=== PATIENT | male | born 1935 | race Caucasian/White ===

== ENCOUNTER 2017-11-21 19:20 | Inpatient (IN) | payer BC, OTHER ==
[~2017-11-21] VITALS: Ht 177.8 cm; Wt 78.3 kg
[~2017-11-21 19:20] MED LIST: ASCO500C OR; CPRUNK PO; L-LYSINE PO; MULT-506 PO; POTASSIUM PO; PRCUNK PO; PYRUNK PO; SAW PALMETTA PO; VITAMIN D PO
[2017-11-21] MEDS ORDERED: SODIUM CHLORIDE 0.9% 1000ML 1,000 ML IV STA (19:51)
[2017-11-21] MEDS ORDERED: MoRPHine SULFATE 10 MG/ML CARP/VIAL IV STA (19:51)
[2017-11-21] MEDS ORDERED: ONDANSETRON INJ 2 MG/ML 2 ML VIAL IV STA (19:51)
[2017-11-21 20:16] LABS: BASO % 0.1 %; BASO ABS # 0.01 K/uL (0-0.2); HEMATOCRIT 38.9 % (42-52); HEMOGLOBIN 13.4 g/dL (14.0-18.0); IG# 0.02 K/uL (0.00-0.02); LYMPH ABS # 0.62 K/uL (1.2-3.4); MEAN CELL VOLUME 90.5 fL (80-100); MEAN CORPUSCULAR HEMOGLOBIN 31.2 pg (25-34); MEAN CORPUSCULAR HGB CONC 34.4 g/dl (32-36); MONO ABS # 0.49 K/uL (0.11-0.59); NEUT % 90.7 %; PLATELET COUNT 205 K/uL (130-400); RED CELL DISTRIBUTION WIDTH CV 12.6 % (11.5-14.5); RED CELL DISTRIBUTION WIDTH SD 41.2 fL (36.4-46.3); WHITE BLOOD COUNT 12.34 K/uL (4.8-10.8)
[2017-11-21 20:36] LABS: CREATININE 1.4 mg/dl (0.60-1.40); POTASSIUM 3.7 mmol/L (3.5-5.1); TOTAL PROTEIN 7.9 gm/dl (6.4-8.2)
[2017-11-21] MEDS ORDERED: MoRPHine SULFATE 4 MG/ML 1 ML CARP\\VIAL IV STA (20:39)
[2017-11-21] MEDS ORDERED: MoRPHine SULFATE 4 MG/ML 1 ML CARP\\VIAL IV PRN ×3 (20:45→23:15)
--- NOTE | 2017-11-21 21:29 | DIAGNOSTIC IMAGING REPORT ---
ABD/PELVIS WITHOUT FOR STONE HISTORY: 82 years-old Male EVAL RLQ ABD PAIN acute right lower quadrant abdominal pain with nausea COMPARISON: CT chest 10/18/2009 TECHNIQUE: Multiple axial CT images of the abdomen and pelvis were obtained without use of IV contrast. A dose lowering technique was used consistent with the principals of AVTAR. FINDINGS: Mild left hemidiaphragm elevation with linear subsegmental left basilar opacities suggesting combination of atelectasis and scarring. Mild dependent subsegmental atelectasis of the right lung base also noted. There is no pneumatosis or pneumoperitoneum identified. Imaged inferior cardiac chambers are mildly enlarged. 1.7 x 1.0 cm indeterminate enlarged right-sided epicardial lymph node is noted. Coronary arterial calcifications are seen. Liver, spleen and right adrenal gland are unremarkable. There is mild thickening of the left adrenal gland suggesting hyperplasia. Severe generalized pancreatic atrophy. Mild gallbladder distention without cholelithiasis. Cortical scarring and parenchymal thinning about the left kidney. Renal sinus cysts are also noted on the left. Right greater the left bilateral nonobstructing nephrolithiasis with 7 mm calculus of the superior pole right kidney. There is moderate right-sided hydroureteronephrosis secondary to an obstructing 9 x 7 x 6 mm calculus of the proximal right ureter is present approximately 1.2 cm distal to the ureteropelvic junction. Moderate perinephric and periureteral reactive edema. Prostamegaly with urinary bladder distention. There is also mild urinary bladder wall thickening with trabeculation. Small fat filled left inguinal hernia. Moderate calcification of the aorta without aneurysm. Retroaortic left renal vein. No bulky adenopathy. Small sliding-type hiatal hernia. 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 Colonic diverticulosis without diverticulitis. Normal appendix. Prior ventral abdominal wall herniorrhaphy. Small fat filled periumbilical hernia, diastases 1.4 cm. Bones appear intact. Multilevel degenerative changes about the spine. IMPRESSION: 1. Moderate right-sided hydroureteronephrosis secondary to a 9 mm obstructing calculus of the proximal right ureter. Additional right greater than left bilateral nonobstructing nephrolithiasis. 2. Colonic diverticulosis without diverticulitis. 3. Small sliding-type hilar hernia. 4. Prostamegaly with urinary bladder distention. Correlate clinically to exclude urinary bladder outlet obstruction. 5. Additional findings as above. The above report was generated using voice recognition software. It may contain grammatical, syntax or spelling errors. Electronically signed by: Sheldon Romero M.D. 11/21/2017 9:28 PM Dictated Date/Time: 11/21/2017 9:17 PM
--- NOTE | 2017-11-21 21:51 | EMERGENCY ROOM VISIT NOTE ---
ED Visit Note First contact with patient: 19:40 Patient was seen by our PA/INSPECTOR WIRE [employer]OPE. I was involved in the patient's care and did evaluate the patient myself. I was involved in the care throughout the ER stay. The patient has a large proximal ureteral stone. This will likely need urologic intervention. The patient has normal kidney function, no signs of urinary infection. He has required multiple doses of pain medication for symptom control. Hospitalization is warranted.
--- NOTE | 2017-11-21 21:55 | EMERGENCY ROOM VISIT NOTE ---
History First contact with patient: 19:40 Chief Complaint: ABDOMINAL PAIN Stated Complaint: SIDE PAIN Nursing Triage Summary: RLQ pain 8/10 with nausea no vomiting since this a.m. around 5. Patient appears very uncomfortably, unable to lie still on the litter. History of Present Illness Patient is an 82-year-old male who presents the emergency department accompanied by his for evaluation of right lower quadrant abdominal pain that started fairly acutely early this morning. He has had symptoms for between 10 and 12 hours. He notes a sharp right lower quadrant pain, that he presently rates an 8/10. It is located in the right lower quadrant, does not wrap around to the back or the flank. He has a very remote history of kidney stones but states that this does not feel similar. He states that he tried to move his bowels, but that was difficult, he felt nauseous and queasy and tried to make himself vomit but did not. He subjectively felt feverish but did not record his temperature with a thermometer. He did not take any medication for his symptoms. He had a late meal of soup about 8 hours ago. He denies any urinary symptoms. No diarrhea. He denies any sick contacts. No unusual food or water consumption. He has a history of laser surgery on the prostate, and inguinal hernia repair, but no other intra-abdominal procedures. Review of Systems Review of systems as per HPI. All other systems reviewed were negative. 10 systems reviewed. 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 See Problem List. Social History Smoking Status: Former Smoker Marital Status: Housing Status: lives with significant other Occupation Status: retired Current/Historical Medications Scheduled Ascorbic Acid (Vitamin C), 500 MG OR DAILY Ciprofloxacin (Cipro Unknown Dose), PO UD Multivitamin (Multivitamin), 1 TAB PO DAILY Oxycodone/Acetaminophen (Percocet Unknown Dose), PO UD Phenazopyridine (Pyridium Unknown Dose), PO UD [L-Lysine], 1 TAB PO DAILY [Potassium], 1 TAB PO DAILY [Saw [place]], 1 TAB PO BID [Vitamin D], 1 TAB PO DAILY Physical Exam Vital Signs Date Time Temp Pulse Resp B/P (MAP) Pulse Ox O2 Delivery O2 Flow Rate FiO2 11/21/17 21:25 77 16 170/88 94 Room Air 11/21/17 19:29 36.6 62 18 206/75 96 Room Air Physical Exam CONSTITUTIONAL: Patient is uncomfortable appearing 82-year-old male who is awake and alert and changing positions frequently in the exam room. EYES: Pupils equal, round, reactive to light and accommodation. EOMs intact without nystagmus. Sclera are anicteric. ENT: Tympanic membranes intact, with normal landmarks. External canals are clear. Oral and nasopharynx are clear. Mucous membranes are moist, no lesions , tongue and gums appear normal. CARDIOVASCULAR: Regular rate and rhythm, with normal S1 and S2, no murmur or gallop or rub is heard. No carotid bruits auscultated. No JVD. Peripheral pulses easily palpable. RESPIRATORY: Breath sounds equal and clear to auscultation without wheezes, rales, or rhonchi heard. Full and equal chest expansion without accessory muscle use or retractions. ABDOMEN: Bowel sounds are present. Abdomen is soft, nondistended, soft ventral hernia is palpable and nontender. Abdomen is nontender to percussion throughout. He has slight discomfort to deep palpation in the right mid abdomen. There is no guarding, rebound or rigidity. No CVA tenderness. INTEGUMENTARY: No lesions or rash, normal skin turgor. LYMPH: No lymphadenopathy. Medical Decision & Procedures ER Provider Diagnostic Interpretation: ABD/PELVIS WITHOUT FOR STONE HISTORY: 82 years-old Male EVAL RLQ ABD PAIN acute right lower quadrant abdominal pain with nausea COMPARISON: CT chest 10/18/2009 TECHNIQUE: Multiple axial CT images of the abdomen and pelvis were obtained without use of IV contrast. A dose lowering technique was used consistent with the principals of ALARA. FINDINGS: Mild left hemidiaphragm elevation with linear subsegmental left basilar opacities suggesting combination of atelectasis and scarring. Mild dependent subsegmental atelectasis of the right lung base also noted. There is no pneumatosis or pneumoperitoneum identified. Imaged inferior cardiac chambers are mildly enlarged. 1.7 x 1.0 cm indeterminate enlarged right-sided epicardial lymph node is noted. Coronary arterial calcifications are seen. Liver, spleen and right adrenal gland are unremarkable. There is mild thickening of the left adrenal gland suggesting hyperplasia. Severe generalized pancreatic atrophy. Mild gallbladder distention without cholelithiasis. Cortical scarring and parenchymal thinning about the left kidney. Renal sinus cysts are also noted on the left. Right greater the left bilateral nonobstructing nephrolithiasis with 7 mm calculus of the superior pole right kidney. There is moderate right-sided hydroureteronephrosis secondary to an obstructing 9 x 7 x 6 mm calculus of the proximal right ureter is present approximately 1.2 cm distal to the ureteropelvic junction. Moderate perinephric and periureteral reactive edema. Prostamegaly with urinary bladder distention. There is also mild urinary bladder wall thickening with trabeculation. Small fat filled left inguinal hernia. Moderate calcification of the aorta without aneurysm. Retroaortic left renal vein. No bulky adenopathy. Small sliding-type hiatal hernia. 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 Colonic diverticulosis without diverticulitis. Normal appendix. Prior ventral abdominal wall herniorrhaphy. Small fat filled periumbilical hernia, diastases 1.4 cm. Bones appear intact. Multilevel degenerative changes about the spine. IMPRESSION: 1. Moderate right-sided hydroureteronephrosis secondary to a 9 mm obstructing calculus of the proximal right ureter. Additional right greater than left bilateral nonobstructing nephrolithiasis. 2. Colonic diverticulosis without diverticulitis. 3. Small sliding-type hilar hernia. 4. Prostamegaly with urinary bladder distention. Correlate clinically to exclude urinary bladder outlet obstruction. 5. Additional findings as above. Laboratory Results 11/21/17 20:00 Red Blood Count 4.30, Mean Corpuscular Volume 90.5, Mean Corpuscular Hemoglobin 31.2, Mean Corpuscular Hemoglobin Concent 34.4, Mean Platelet Volume 10.0, Neutrophils (%) (Auto) 90.7, Lymphocytes (%) (Auto) 5.0, Monocytes (%) (Auto) 4.0, Eosinophils (%) (Auto) 0.0, Basophils (%) (Auto) 0.1, Neutrophils # (Auto) 11.20, Lymphocytes # (Auto) 0.62, Monocytes # (Auto) 0.49, Eosinophils # (Auto) 0.00, Basophils # (Auto) 0.01 11/21/17 20:00 Test 11/21/17 20:00 White Blood Count 12.34 K/uL (4.8-10.8) Red Blood Count 4.30 M/uL (4.7-6.1) Hemoglobin 13.4 g/dL (14.0-18.0) Hematocrit 38.9 % (42-52) Mean Corpuscular Volume 90.5 fL (80-100) Mean Corpuscular Hemoglobin 31.2 pg (25-34) Mean Corpuscular Hemoglobin Concent 34.4 g/dl (32-36) Platelet Count 205 K/uL (130-400) Mean Platelet Volume 10.0 fL (7.4-10.4) Neutrophils (%) (Auto) 90.7 % Lymphocytes (%) (Auto) 5.0 % Monocytes (%) (Auto) 4.0 % Eosinophils (%) (Auto) 0.0 % Basophils (%) (Auto) 0.1 % Neutrophils # (Auto) 11.20 K/uL (1.4-6.5) Lymphocytes # (Auto) 0.62 K/uL (1.2-3.4) Monocytes # (Auto) 0.49 K/uL (0.11-0.59) Eosinophils # (Auto) 0.00 K/uL (0-0.5) Basophils # (Auto) 0.01 K/uL (0-0.2) RDW Standard Deviation 41.2 fL (36.4-46.3) RDW Coefficient of Variation 12.6 % (11.5-14.5) Immature Granulocyte % (Auto) 0.2 % Immature Granulocyte # (Auto) 0.02 K/uL (0.00-0.02) Urine Color YELLOW Urine Appearance CLEAR (CLEAR) Urine pH 5.5 (4.5-7.5) Urine Specific [place] 1.019 (1.000-1.030) Urine Protein TRACE (NEG) Urine Glucose (UA) NEG (NEG) Urine Ketones NEG (NEG) Urine Occult Blood TRACE (NEG) Urine Nitrite NEG (NEG) Urine Bilirubin NEG (NEG) Urine Urobilinogen NEG (NEG) Urine Leukocyte Esterase NEG (NEG) Urine WBC (Auto) 1-5 /hpf (0-5) Urine RBC (Auto) 10-30 /hpf (0-4) Urine Hyaline Casts (Auto) 1-5 /lpf (0-5) Urine Epithelial Cells (Auto) 0-5 /lpf (0-5) Urine Bacteria (Auto) NEG (NEG) Anion Gap 7.0 mmol/L (3-11) Est Creatinine Clear Calc Drug Dose 38.9 ml/min Estimated GFR () 54.2 Estimated GFR (Non- 46.8 BUN/Creatinine Ratio 12.9 (10-20) Calcium Level 9.0 mg/dl (8.5-10.1) Total Bilirubin 0.4 mg/dl (0.2-1) Aspartate Amino Transf (AST/SGOT) 22 U/L (15-37) Alanine Aminotransferase (ALT/SGPT) 24 U/L (12-78) Alkaline Phosphatase 103 U/L (45-117) Total Protein 7.9 gm/dl (6.4-8.2) Albumin 4.0 gm/dl (3.4-5.0) Globulin 3.9 gm/dl (2.5-4.0) Albumin/Globulin Ratio 1.0 (0.9-2) Lipase 58 U/L (73-393) Medications Administered Medications (Trade) Dose Ordered Sig/Mau Route Start Time Stop Time Status Last Admin Dose Admin Morphine Sulfate (MoRPHine SULFATE INJ) 6 mg NOW STAT IV 11/21/17 19:51 11/21/17 19:53 DC 11/21/17 20:08 6 MG Ondansetron HCl (Zofran Inj) 4 mg NOW STAT IV 11/21/17 19:51 11/21/17 19:53 DC 11/21/17 20:07 4 MG Sodium Chloride 1,000 ml @ 999 mls/hr Q1H1M STAT IV 11/21/17 19:51 11/21/17 20:51 DC 11/21/17 19:51 999 MLS/HR Morphine Sulfate (MoRPHine SULFATE INJ) 4 mg NOW STAT IV 11/21/17 20:39 11/21/17 20:41 DC 11/21/17 21:00 4 MG Morphine Sulfate (MoRPHine SULFATE INJ) 4 mg Q1H PRN IV 11/21/17 20:45 12/05/17 20:44 11/21/17 22:00 4 MG ED Course The patient was seen and assessed as above. His old records were reviewed. IV lock was initiated and he was hydrated with normal saline solution. He was given a liter bolus over 1 hour. He was initially medicated with morphine 6 mg IV and Zofran 4 mg IV. He had moderate relief of his pain, but requested additional medication and was given an additional morphine 4 mg IV, Dr. Mohr hen morphine 4 mg IV every hour as needed for pain. CBC with differential, CMP , lipase and urinalysis were collected. Laboratory studies noted a mildly elevated white count at 12,400, H&H 13 and 39 , platelet count 205,000. Electrolytes are within normal limits. BUN and creatinine 18 and 1.4. LFTs and lipase are not elevated. Urinalysis notes trace occult blood and 10-30 RBCs, no other indicators for infection. Given the right lower quadrant/flank pain and hematuria, CT scan of the abdomen and pelvis without contrast was ordered. CT noted moderate right-sided hydroureteronephrosis secondary to an obstructing 9 mm calculus of the proximal right ureter. There is also bilateral, right greater than left nonobstructing nephrolithiasis. All laboratory and diagnostic imaging studies were reviewed with attending physician who also independently evaluated the patient. ED workup was reviewed with the patient and his at length. I did discuss the patient with Dr. James from urology who recommended medical admission with surgical consult. Patient was discussed with the [facility] for further care and management. Differential diagnoses entertained included UTI, pyelonephritis, renal colic, appendicitis, biliary colic, acute cholecystitis, cholelithiasis, bowel obstruction, perforation, mass or malignancy, among others. Medical Decision S Dr. Valencia ED Course. Medication Reconcilliation Current Medication List: was personally reviewed by [place] Blood Pressure Screening Patient's blood pressure: Elevated blood pressure Blood pressure disposition: Elevated BP felt to be situational (Dr. Mohr) Impression Primary Impression: Ureteral calculus, right Departure Information Dispostion Being Evaluated By Hospitalist Referrals Cooper Jin M.D. (PCP) Patient Instructions My [facility]
[2017-11-21] MEDS ORDERED: CHOL400T PO (22:24)
[2017-11-21] MEDS ORDERED: LYSI500C4 PO (22:24)
[2017-11-21] MEDS ORDERED: MISC1CAP60 PO (22:24)
--- NOTE | 2017-11-21 23:15 | History and Physical ---
History & Physical Date & Time of Service: November 21, 2017 at 22:36 Chief Complaint: Side Pain Primary Care Physician: Cooper Jin M.D. History of Present Illness Source: patient, family () Pt is an 82M with previous kidney stones and BPH s/p TURP procedure that p/w right sided abdominal pain starting acutely at 3am approx 20 hours prior. The pain was constant throughout the day, originally the patient thought he ate something but then starting thinking he might have a kidney stone. He has had kidney stones in the past. Aside from the right sided abdominal pain he is in good health. Pt denies fevers, denies back pain, denies flank pain, denies hematuria, denies vomiting, denies diarrhea. PMHx: previous kidney stones and BPH s/p resection. Meds: No Rx meds. 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 Cooper Jin. Past Medical/Surgical History Medical Problems: (1) Hypertrophy (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 (2) Personal History Of Urinary Calculi Surgical Problems: (1) History of inguinal hernia repair, bilateral (2) History of prostate surgery (3) Lens Replacement Nec Social History Smoking Status: Former Smoker Marital Status: Occupational Status: retired Allergies Coded Allergies: No Known Allergies (Verified , 09/29/09) Home Medications Scheduled Cholecalciferol (Vitamin D), 1 TAB PO DAILY Lysine (L-Lysine), 1 CAP PO DAILY Misc Natural Products (Saw Dexter), 1 CAP PO DAILY Review of Systems Constitutional: No fever, No chills, No weight loss Respiratory: No cough, No sputum, No wheezing, No shortness of breath Cardiovascular: No chest pain Abdomen: No pain, No nausea, No vomiting, No diarrhea Musculoskeletal: No joint pain Genitourinary - Male: No hematuria, No dysuria, No urinary frequency, No urinary urgency, No urinary hesitancy, No urinary retention, No urinary incontinence, No penile discharge Neurologic: No memory loss Physical Exam Vital Signs Date Time Temp Pulse Resp B/P (MAP) Pulse Ox O2 Delivery O2 Flow Rate FiO2 11/21/17 21:25 77 16 170/88 94 Room Air 11/21/17 19:29 36.6 62 18 206/75 96 Room Air General Appearance: WD/WN, no apparent distress Head: normocephalic, atraumatic Eyes: normal inspection, PERRL ENT: normal ENT inspection Neck: supple Respiratory/Chest: chest non-tender, lungs clear, normal breath sounds, no respiratory distress, no accessory muscle use Cardiovascular: regular rate, rhythm, no edema, no gallop, no JVD, no murmur, normal peripheral pulses Abdomen/GI: normal bowel sounds, soft, no organomegaly, no pulsatile mass, + pertinent finding (tender to deep palpation in the RLQ) Back: normal inspection, no CVA tenderness, no muscle spasm, normal range of motion Extremities/Musculoskelatal: normal inspection, no calf tenderness, no pedal edema 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, no motor/sensory deficits, alert, normal mood/affect, normal reflexes, oriented x 3 Skin: normal color, warm/dry, no rash Diagnostics Laboratory Results Results Past 24 Hours Test 11/21/17 20:00 Range/Units White Blood Count 12.34 4.8-10.8 K/uL Red Blood Count 4.30 4.7-6.1 M/uL Hemoglobin 13.4 14.0-18.0 g/dL Hematocrit 38.9 42-52 % Mean Corpuscular Volume 90.5 80-100 fL Mean Corpuscular Hemoglobin 31.2 25-34 pg Mean Corpuscular Hemoglobin Concent 34.4 32-36 g/dl Platelet Count 205 130-400 K/uL Mean Platelet Volume 10.0 7.4-10.4 fL Neutrophils (%) (Auto) 90.7 % Lymphocytes (%) (Auto) 5.0 % Monocytes (%) (Auto) 4.0 % Eosinophils (%) (Auto) 0.0 % Basophils (%) (Auto) 0.1 % Neutrophils # (Auto) 11.20 1.4-6.5 K/uL Lymphocytes # (Auto) 0.62 1.2-3.4 K/uL Monocytes # (Auto) 0.49 0.11-0.59 K/uL Eosinophils # (Auto) 0.00 0-0.5 K/uL Basophils # (Auto) 0.01 0-0.2 K/uL RDW Standard Deviation 41.2 36.4-46.3 fL RDW Coefficient of Variation 12.6 11.5-14.5 % Immature Granulocyte % (Auto) 0.2 % Immature Granulocyte # (Auto) 0.02 0.00-0.02 K/uL Urine Color YELLOW Urine Appearance CLEAR CLEAR Urine pH 5.5 4.5-7.5 Urine Specific [place] 1.019 1.000-1.030 Urine Protein TRACE NEG Urine Glucose (UA) NEG NEG Urine Ketones NEG NEG Urine Occult Blood TRACE NEG Urine Nitrite NEG NEG Urine Bilirubin NEG NEG Urine Urobilinogen NEG NEG Urine Leukocyte Esterase NEG NEG Urine WBC (Auto) 1-5 0-5 /hpf Urine RBC (Auto) 10-30 0-4 /hpf Urine Hyaline Casts (Auto) 1-5 0-5 /lpf Urine Epithelial Cells (Auto) 0-5 0-5 /lpf Urine Bacteria (Auto) NEG NEG Sodium Level 141 136-145 mmol/L Potassium Level 3.7 3.5-5.1 mmol/L Chloride Level 107 98-107 mmol/L Carbon Dioxide Level 26 21-32 mmol/L Anion Gap 7.0 3-11 mmol/L Blood Urea Nitrogen 18 7-18 mg/dl Creatinine 1.40 0.60-1.40 mg/dl Est Creatinine Clear Calc Drug Dose 38.9 ml/min Estimated GFR () 54.2 Estimated GFR (Non- 46.8 BUN/Creatinine Ratio 12.9 10-20 Random Glucose 152 70-99 mg/dl Calcium Level 9.0 8.5-10.1 mg/dl Total Bilirubin 0.4 0.2-1 mg/dl Aspartate Amino Transf (AST/SGOT) 22 15-37 U/L Alanine Aminotransferase (ALT/SGPT) 24 12-78 U/L Alkaline Phosphatase 103 45-117 U/L Total Protein 7.9 6.4-8.2 gm/dl Albumin 4.0 3.4-5.0 gm/dl Globulin 3.9 2.5-4.0 gm/dl Albumin/Globulin Ratio 1.0 0.9-2 Lipase 58 73-393 U/L Diagnostic Radiology ABD/PELVIS WITHOUT FOR STONE HISTORY: 82 years-old Male EVAL RLQ ABD PAIN acute right lower quadrant abdominal pain with nausea COMPARISON: CT chest 10/18/2009 TECHNIQUE: Multiple axial CT images of the abdomen and pelvis were obtained without use of IV contrast. A dose lowering technique was used consistent with the principals of AVTAR. FINDINGS: Mild left hemidiaphragm elevation with linear subsegmental left basilar opacities suggesting combination of atelectasis and scarring. Mild dependent subsegmental atelectasis of the right lung base also noted. There is no pneumatosis or pneumoperitoneum identified. Imaged inferior cardiac chambers are mildly enlarged. 1.7 x 1.0 cm indeterminate enlarged right-sided epicardial lymph node is noted. Coronary arterial calcifications are seen. Liver, spleen and right adrenal gland are unremarkable. There is mild thickening of the left adrenal gland suggesting hyperplasia. Severe generalized pancreatic atrophy. Mild gallbladder distention without cholelithiasis. Cortical scarring and parenchymal thinning about the left kidney. Renal sinus cysts are also noted on the left. Right greater the left bilateral nonobstructing nephrolithiasis with 7 mm calculus of the superior pole right kidney. There is moderate right-sided hydroureteronephrosis secondary to an obstructing 9 x 7 x 6 mm calculus of the proximal right ureter is present approximately 1.2 cm distal to the ureteropelvic junction. Moderate perinephric and periureteral reactive edema. Prostamegaly with urinary bladder distention. There is also mild urinary bladder wall thickening with trabeculation. Small fat filled left inguinal hernia. Moderate calcification of the aorta without aneurysm. Retroaortic left renal vein. No bulky adenopathy. Small sliding-type hiatal hernia. 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 Colonic diverticulosis without diverticulitis. Normal appendix. Prior ventral abdominal wall herniorrhaphy. Small fat filled periumbilical hernia, diastases 1.4 cm. Bones appear intact. Multilevel degenerative changes about the spine. IMPRESSION: 1. Moderate right-sided hydroureteronephrosis secondary to a 9 mm obstructing calculus of the proximal right ureter. Additional right greater than left bilateral nonobstructing nephrolithiasis. 2. Colonic diverticulosis without diverticulitis. 3. Small sliding-type hilar hernia. 4. Prostamegaly with urinary bladder distention. Correlate clinically to exclude urinary bladder outlet obstruction. 5. Additional findings as above. Impression Assessment and Plan 82M with an obstructing 9mm proximal R uretral calculus. Urology consulted. NPO for stone removal. 9mm Proximal obstructing R uretral stone. Pt is afebrile. Pain well controlled. CT Showed moderate right-sided hydroureteronephrosis secondary to a 9 mm obstructing calculus of the proximal right ureter. For Pain, 2mg IV Morphine Q2H PRN and 4mg IV Morphine q4H for moderate pain,. Urology Consulted. (Dr. James) NPO + IVF of 100mls/hr. Will hold all pt's non formulary herbal meds. DVT Proph: SCDs Dispo: Admit Med Surg. Social: No concerns. FULL CODE Resident Physician Supervision Note: I was present with Dr. Long during the history and exam. I discussed the case with the resident and agree with the findings and plan as documented in the note. Any exceptions or clarifications are listed here: Healthy 82 y/o M Hx BPH, renal calculi 50 yrs prior - Presenting with R lower abdominal and flank pain. Imaging reveals a R proximal, obstructing ureteral calculus with hydro. OE AAO x 3 S1,2 R CTAB ND, BS(+) No CCE P: IVF, pain control Pt to be evaluated by urology AM as he will likely require intervention. The pt does not have significant preop risk factors Documented By: Maurilio Suarez Resuscitation Status VTE Prophylaxis Will order VTE Prophylaxis: Yes Resident Involvement: Resident Care Provided Care Provided: Adult Hospital Medicine
[2017-11-21 23:50] VITALS: BP 186/73; PULSE 97; TEMP 37.1; O2SAT 92; Ht 177.8 cm; Wt 78.3 kg
[2017-11-22 00:15] VITALS: BP 173/79
[2017-11-22] MEDS ORDERED: NORMOSOL R 1,000 ML IV SCH (00:30)
[2017-11-22] MEDS ORDERED: LIDOCAINE HCL 2% JELLY 30 ML TUBE ONE (06:12)
[2017-11-22] MEDS ORDERED: LIDOCAINE HCL 2% JELLY 30 ML TUBE EXT PRN (06:30)
[2017-11-22 07:02] VITALS: BP 123/64; PULSE 61; TEMP 36.9; O2SAT 93
[2017-11-22] MEDS ORDERED: NSS + 20MEQ KCL 1000ML 1,000 ML IV SCH (07:30)
[2017-11-22 07:50] VITALS: BP 156/66; PULSE 62; TEMP 36.9; O2SAT 93
[2017-11-22 08:33] VITALS: O2SAT 93
--- NOTE | 2017-11-22 08:52 | Family Medicine Progress Note ---
Progress Note Date of Service November 22, 2017. Subjective Pt evaluation today including: conversation w/ patient, conversation w/ family , physical exam, chart review, lab review Pain: None Voiding: voiding difficulty Notes this AM that he is currently completely pain free Did have difficulty voiding last night. Was straight cathd for 800 ml. Evaluated by urology this AM, plan for outpatient lithotrypsy. No acute nursing concerns. Additional Comments: A 10 point review of systems was negative unless stated above. Medications Current Inpatient Medications Medications (Trade) Dose Ordered Sig/Mau Route Start Time Stop Time Status Last Admin Dose Admin Morphine Sulfate (MoRPHine SULFATE INJ) 2 mg Q2H PRN IV 11/21/17 23:15 12/05/17 23:14 Morphine Sulfate (MoRPHine SULFATE INJ) 4 mg Q4H PRN IV 11/21/17 23:15 12/05/17 23:14 Lidocaine HCl (Xylocaine Jelly 2%) UD PRN EXT 11/22/17 06:30 12/22/17 06:29 Potassium Chloride/Sodium Chloride 1,000 ml @ 120 mls/hr Q8H20M IV 11/22/17 07:30 12/22/17 07:29 11/22/17 09:42 120 MLS/HR Tamsulosin HCl (Flomax Cap) 0.4 mg HS PO 11/22/17 21:00 12/22/17 20:59 Objective Vital Signs Date Time Temp Pulse Resp B/P (MAP) Pulse Ox O2 Delivery O2 Flow Rate FiO2 11/22/17 10:45 136/67 (90) 117/57 (77) 136/67 (90) 11/22/17 08:33 93 Room Air 11/22/17 07:50 36.9 62 18 156/66 (96) 93 Room Air 11/22/17 07:30 Room Air 11/22/17 07:02 36.9 61 18 123/64 (83) 93 Room Air 11/22/17 00:31 Room Air 11/22/17 00:15 173/79 (110) 11/21/17 23:50 37.1 97 16 186/73 92 Room Air 11/21/17 23:45 82 20 160/81 94 11/21/17 23:04 71 20 174/89 94 Room Air 11/21/17 21:25 77 16 170/88 94 Room Air 11/21/17 19:29 36.6 62 18 206/75 96 Room Air Physical Exam General Appearance: WD/WN, no apparent distress Eyes: normal inspection, EOMI ENT: hearing grossly normal, pharynx normal Neck: supple, no adenopathy, no JVD Respiratory/Chest: lungs clear, no respiratory distress Cardiovascular: regular rate, rhythm, no gallop, no murmur Abdomen: normal bowel sounds, non tender, soft Extremities: non-tender, no pedal edema Neurologic/Psychiatric: alert, normal mood/affect, oriented x 3 Skin: normal color, warm/dry, no rash Lymphatic: no adenopathy Laboratory Results Last 24 Hours Test 11/21/17 20:00 White Blood Count 12.34 K/uL Red Blood Count 4.30 M/uL Hemoglobin 13.4 g/dL Hematocrit 38.9 % Mean Corpuscular Volume 90.5 fL Mean Corpuscular Hemoglobin 31.2 pg Mean Corpuscular Hemoglobin Concent 34.4 g/dl Platelet Count 205 K/uL Mean Platelet Volume 10.0 fL Neutrophils (%) (Auto) 90.7 % Lymphocytes (%) (Auto) 5.0 % Monocytes (%) (Auto) 4.0 % Eosinophils (%) (Auto) 0.0 % Basophils (%) (Auto) 0.1 % Neutrophils # (Auto) 11.20 K/uL Lymphocytes # (Auto) 0.62 K/uL Monocytes # (Auto) 0.49 K/uL Eosinophils # (Auto) 0.00 K/uL Basophils # (Auto) 0.01 K/uL RDW Standard Deviation 41.2 fL RDW Coefficient of Variation 12.6 % Immature Granulocyte % (Auto) 0.2 % Immature Granulocyte # (Auto) 0.02 K/uL Urine Color YELLOW Urine Appearance CLEAR Urine pH 5.5 Urine Specific [place] 1.019 Urine Protein TRACE Urine Glucose (UA) NEG Urine Ketones NEG Urine Occult Blood TRACE Urine Nitrite NEG Urine Bilirubin NEG Urine Urobilinogen NEG Urine Leukocyte Esterase NEG Urine WBC (Auto) 1-5 /hpf Urine RBC (Auto) 10-30 /hpf Urine Hyaline Casts (Auto) 1-5 /lpf Urine Epithelial Cells (Auto) 0-5 /lpf Urine Bacteria (Auto) NEG Sodium Level 141 mmol/L Potassium Level 3.7 mmol/L Chloride Level 107 mmol/L Carbon Dioxide Level 26 mmol/L Anion Gap 7.0 mmol/L Blood Urea Nitrogen 18 mg/dl Creatinine 1.40 mg/dl Est Creatinine Clear Calc Drug Dose 38.9 ml/min Estimated GFR () 54.2 Estimated GFR (Non- 46.8 BUN/Creatinine Ratio 12.9 Random Glucose 152 mg/dl Calcium Level 9.0 mg/dl Total Bilirubin 0.4 mg/dl Aspartate Amino Transf (AST/SGOT) 22 U/L Alanine Aminotransferase (ALT/SGPT) 24 U/L Alkaline Phosphatase 103 U/L Total Protein 7.9 gm/dl Albumin 4.0 gm/dl Globulin 3.9 gm/dl Albumin/Globulin Ratio 1.0 Lipase 58 U/L Assessment and Plan Very pleasant 82 year old male presenting with acute right-sided abdominal pain and found to have right-sided obstructing proximal ureteral stone with hydronephrosis. Stone is approximately 9 mm so unlikely to pass on its own but currently the patient is pain-free. Our plan for him is as follows: - Right obstructing proximal ureteral stone with right-sided hydronephrosis: Clinically patient appears well and is now pain free. Urology has evaluated, and recommendations are appreciated. Per discussion with patient, plan will be to have lithotripsy later this week. Declines the alternative of stent placement. Pain seems well controlled, has not used the PRN Morphine since arrival to floor. Continue IVF NSS + 20 KCl at 120 ml/hr. No plans for intervention today, will start back up on diet while admitted. - History of BPH/TURP: Patient notes previous history with TURP. Has prostatomegaly on CT. Overnight exhibited symptoms of obstruction requiring straight cath. Tamsulosin started by urology and I agree. I will continue him on this until he follows-up with their service. - DVT Prophylaxis: SCD and TEDs - Code Status: Level I Full Code - Disposition: Med/Surg. Good functional baseline so I do not anticipate need for PT and OT at this time. Possible discharge later this afternoon if he can show good voiding potential. Discharge planning: home Assessment/Plan Resident Physician Supervision Note: I was present with Dr. Cantu during the history and exam. I discussed the case with the resident and agree with the findings and plan as documented in the note. Any exceptions or clarifications are listed here: Pt seen and examined in chair at bedside. Reports resolution of all flank and abdominal pain. Per d/w urology consultation, will have lithotripsy on Tuesday. Tolerating velazquez catheter well - failed void trial, so will leave velazquez cath in until re-evaluation w/ urology. Will provide pain medication for supportive care with recurrence of sx, but encouraged to present if pain becomes worse or unmanageable. Equivocal lymph node noted on CT abdomen which would warrant outpatient follow up/evaluation.
--- NOTE | 2017-11-22 09:03 | Urology Consultation ---
History General Date of Service: November 22, 2017. Chief Complaint: RLQ abdominal pain Primary Care Physician: Cooper Jin M.D. Pt seen a urologist before?: Yes (Dr. Garcia ) If yes, why?: BPH, nephrolithiasis History of Present Illness 82 yo male presents to [facility] with c/o RLQ abdominal pain that started 1 day prior. Pt denies any n/v, f/c, dysuria, or hematuria. Pain has resolved this morning. He reports he feels better today. CT scan showing a 9mm proximal right ureteral stone. He reports a hx of passing a stone in the 1970s. He previously saw Dr. Garcia are 2009 for BPH and is s/p TURP around that time as well. Imaging Imaging: CT Laboratory Last 24 Hours Test 11/21/17 20:00 White Blood Count 12.34 K/uL Red Blood Count 4.30 M/uL Hemoglobin 13.4 g/dL Hematocrit 38.9 % Mean Corpuscular Volume 90.5 fL Mean Corpuscular Hemoglobin 31.2 pg Mean Corpuscular Hemoglobin Concent 34.4 g/dl Platelet Count 205 K/uL Mean Platelet Volume 10.0 fL Neutrophils (%) (Auto) 90.7 % Lymphocytes (%) (Auto) 5.0 % Monocytes (%) (Auto) 4.0 % Eosinophils (%) (Auto) 0.0 % Basophils (%) (Auto) 0.1 % Neutrophils # (Auto) 11.20 K/uL Lymphocytes # (Auto) 0.62 K/uL Monocytes # (Auto) 0.49 K/uL Eosinophils # (Auto) 0.00 K/uL Basophils # (Auto) 0.01 K/uL RDW Standard Deviation 41.2 fL RDW Coefficient of Variation 12.6 % Immature Granulocyte % (Auto) 0.2 % Immature Granulocyte # (Auto) 0.02 K/uL Urine Color YELLOW Urine Appearance CLEAR Urine pH 5.5 Urine Specific [place] 1.019 Urine Protein TRACE Urine Glucose (UA) NEG Urine Ketones NEG Urine Occult Blood TRACE Urine Nitrite NEG Urine Bilirubin NEG Urine Urobilinogen NEG Urine Leukocyte Esterase NEG Urine WBC (Auto) 1-5 /hpf Urine RBC (Auto) 10-30 /hpf Urine Hyaline Casts (Auto) 1-5 /lpf Urine Epithelial Cells (Auto) 0-5 /lpf Urine Bacteria (Auto) NEG Sodium Level 141 mmol/L Potassium Level 3.7 mmol/L Chloride Level 107 mmol/L Carbon Dioxide Level 26 mmol/L Anion Gap 7.0 mmol/L Blood Urea Nitrogen 18 mg/dl Creatinine 1.40 mg/dl Est Creatinine Clear Calc Drug Dose 38.9 ml/min Estimated GFR () 54.2 Estimated GFR (Non- 46.8 BUN/Creatinine Ratio 12.9 Random Glucose 152 mg/dl Calcium Level 9.0 mg/dl Total Bilirubin 0.4 mg/dl Aspartate Amino Transf (AST/SGOT) 22 U/L Alanine Aminotransferase (ALT/SGPT) 24 U/L Alkaline Phosphatase 103 U/L Total Protein 7.9 gm/dl Albumin 4.0 gm/dl Globulin 3.9 gm/dl Albumin/Globulin Ratio 1.0 Lipase 58 U/L Problem List Medical Problems: (1) Hypertrophy (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 Status: Chronic (2) Personal History Of Urinary Calculi Status: Chronic (3) Ureteral calculus, right Status: Acute Past History BPH, kidney stones Past Surgical History: other (TURP, cataract surgery, hernia repair ) Family History non-contributory Social History Hx Tobacco Use In Past Year?: No Smoking: other (former smoker ) Marital status: Housing status: lives with family Occupation status: retired Allergies Coded Allergies: No Known Allergies (Verified , 09/29/09) Medications Home Medications: Home Meds and Scripts Medications Dose Route/Sig Max Daily Dose Days Date Category Vitamin D (Cholecalciferol) Unknown Strength Tab 1 Tab PO DAILY 11/21/17 Reported Saw [place] ([employer]) 1 Cap Cap 1 Cap PO DAILY 11/21/17 Reported L-Lysine (Lysine) Unknown Strength Cap 1 Cap PO DAILY 11/21/17 Reported Inpatient Medications: Current Inpatient Medications Medications (Trade) Dose Ordered Sig/Mau Route Start Time Stop Time Status Last Admin Dose Admin Morphine Sulfate (MoRPHine SULFATE INJ) 2 mg Q2H PRN IV 11/21/17 23:15 12/05/17 23:14 Morphine Sulfate (MoRPHine SULFATE INJ) 4 mg Q4H PRN IV 11/21/17 23:15 12/05/17 23:14 Lidocaine HCl (Xylocaine Jelly 2%) UD PRN EXT 11/22/17 06:30 12/22/17 06:29 Potassium Chloride/Sodium Chloride 1,000 ml @ 120 mls/hr Q8H20M IV 11/22/17 07:30 12/22/17 07:29 Review of Systems Review of Systems Constitutional: No fever, No chills Eyes: No double vision Neurological: No dizzy Endocrine: No excessive thirst Gastrointestinal: No abdominal pain, No nausea, No vomiting Cardiovascular: No chest pain Respiratory: No shortness of breath Skin: No rash Musculoskeletal: No back pain Male : No painful urination, No blood in urine Physical Exam Vital Signs: Vital Signs Past 12 Hours Date Time Temp Pulse Resp B/P (MAP) Pulse Ox O2 Delivery O2 Flow Rate FiO2 11/22/17 08:33 93 Room Air 11/22/17 07:50 36.9 62 18 156/66 (96) 93 Room Air 11/22/17 07:02 36.9 61 18 123/64 (83) 93 Room Air 11/22/17 00:31 Room Air 11/22/17 00:15 173/79 (110) 11/21/17 23:50 37.1 97 16 186/73 92 Room Air 11/21/17 23:45 82 20 160/81 94 11/21/17 23:04 71 20 174/89 94 Room Air 11/21/17 21:25 77 16 170/88 94 Room Air Physical Exam: General Appearance: no apparent distress Eyes: bilateral eyes normal inspection ENT: hearing grossly normal Neck: supple, no adenopathy, no JVD Respiratory/Chest: lungs clear, normal breath sounds, no respiratory distress, no accessory muscle use Cardiovascular: regular rate, rhythm, no JVD Extremities: normal inspection Neurologic/Psychiatric: alert, normal mood/affect, oriented x 3 Skin: normal color Assessment & Plan Assessment & Plan Treatment Planned: ESWL A/P: 9mm right ureteral stone; incomplete bladder emptying AFVSS. No evidence for sepsis at this time. White count elevated at 12.34. Will check a UC&S. Cr noted to be 1.4. Pain currently resolved. Tx options discussed with the pt today have included a trial of passage with MET (unlikely given size of stone), cysto with stent placement today, or ESWL on 11-25. Pt prefers to avoid stent placement and would like to have a right ESWL on 11-25. This is reasonable. I did discuss with the pt the risk of worsening pain in the interim. Will check a KUB this morning for stone visibility. Will also check a pre-op EKG and chest x-ray. Will provide a diet this morning. Pt should avoid any anticoagulants or NSAIDS through 11-25 for ESWL. D/c home per primary service today vs tomorrow if pain remains controlled. Would recommend d/c home on Colace and pain medications. The pt is to f/u as an outpatient in our office upon discharge to complete ESWL paperwork. Pt straight cathed for 775ml this AM. He is s/p TURP. If unable to void by noon today, will recheck a bladder scan. Will also initiate Flomax. Monitor for orthostasis. D/c home on Flomax as well. Thanks for the consult. Will continue to follow along with the pt while inpatient.
--- NOTE | 2017-11-22 09:26 | DIAGNOSTIC IMAGING REPORT ---
CHEST 2 VIEWS ROUTINE CLINICAL HISTORY: Preoperative evaluation. COMPARISON STUDY: Chest CT October 08, 2009. FINDINGS: Note is made of moderate elevation/eventration of the left hemidiaphragm. Left basilar opacity favors atelectasis. There is no consolidation to suggest pneumonia. Pulmonary vascularity is normal. No pneumothorax or pleural effusion is noted. Cardiac size is at upper limits of normal. IMPRESSION: No acute cardiopulmonary findings. Electronically signed by: Everett Kim M.D. 11/22/2017 9:25 AM Dictated Date/Time: 11/22/2017 9:22 AM
--- NOTE | 2017-11-22 09:26 | DIAGNOSTIC IMAGING REPORT ---
KUB CLINICAL HISTORY: Ureteral stone. FINDINGS: 2 AP supine abdominal radiographs are correlated with abdominal CT dated 11/21/2017. There is a nonobstructed abdominal bowel gas pattern noting moderate colonic fecal retention. A 6 mm nonobstructing calculus projects over the right kidney. The patient's known right ureteral calculus is not well visualized. Large phleboliths are seen throughout the pelvis. Extensive postoperative change and surgical clips also project over the pelvis. No calcifications are seen projecting over the left kidney. The skeletal structures are osteopenic. Lumbosacral spondylosis is noted. IMPRESSION: 1. The patient's large obstructing right ureteral calculus is not visualized and may be obscured by overlying colonic contents. 2. A 6 mm nonobstructing this projects over the right kidney. Electronically signed by: Sg Ascencio M.D. 11/22/2017 9:24 AM Dictated Date/Time: 11/22/2017 9:21 AM
[2017-11-22] MEDS ORDERED: TAMSULOSIN HCL 0.4 MG CAP PO ONE (09:45)
[2017-11-22 10:45] VITALS: BP_SYST 117; BP_SYST 136; BP_DIAS 57; BP_DIAS 67
[2017-11-22] MEDS ORDERED: OXYC1TAB3 PO ×2 (16:57→17:07)
--- NOTE | 2017-11-22 17:03 | Discharge Instructions ---
Discharge Instructions Date of Service November 22, 2017. Admission Reason for Admission: Urinary Tract Obstruction By Kidney Stone Discharge Discharge Diagnosis / Problem: Right kidney stone Discharge Goals Goal(s): Decrease discomfort, Diagnostic testing, Therapeutic intervention Activity Recommendations Activity Limitations: resume your previous activity Exercise/Sports Limitations: until after follow-up appointment Shower/Bathe: no limitations Driving or Machine Use: see below . Instructions / Follow-Up Instructions / Follow-Up You have a right kidney stone. Our urology service has evaluated you and you both decide to proceed with stone removal later this week. We will discharge you until then and they will contact you with a date and time for the procedure. Anticipate it to be this TuesdayNovember 25. You did not have pain at the time of discharge. However, if the pain recurs. we will give you a very small amount of medicine for pain (oxycodone). Please do not drive or operate heavy machinery while on this medication. You had some difficulty with urinating during your stay which seems related to your prostate. Until you are seen later this week, you will have a Purcell catheter to help with urination. Urology will decide when this can come out. Until you have your procedure, please hold the nutritional supplements. Please do not take anti-inflammatory medications before your procedure. If your pain acutely worsens, or you develop a fever, nausea or vomiting, please seek medical attention immediately by either calling your primary care provider or going to your nearest emergency department. Otherwise, please see your primary care provider within 1 week to ensure that your symptoms continue to improve. Urology will see you Tuesday. Please do not eat starting midnight before the procedure. It was a pleasure to be involved in your care and we wish you all the best. Current Hospital Diet Patient's current hospital diet: Regular Diet Discharge Diet Recommended Diet: Regular Diet Procedures Procedures Performed: CT scan Pending Studies Studies pending at discharge: no Medical Emergencies . Who to Call and When: Medical Emergencies: If at any time you feel your situation is an emergency, please call 911 immediately. . Non-Emergent Contact Non-Emergency issues call your: Primary Care Provider, Urologist Call Non-Emergent contact if: you have a fever, your pain is concerning you, you have any medication questions . . "Provider Documentation" section prepared by Hitesh Cantu. . [place] Drug Monitoring Program Search Results: no issues identified
[2017-11-22 17:34] VITALS: BP 136/67; PULSE 62; TEMP 36.9; O2SAT 93
--- NOTE | 2017-11-22 19:11 | Discharge Summary ---
Discharge Summary Date of Service November 22, 2017. 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 A dose lowering technique was used consistent with the principals of AVTAR. FINDINGS: Mild left hemidiaphragm elevation with linear subsegmental left basilar opacities suggesting combination of atelectasis and scarring. Mild dependent subsegmental atelectasis of the right lung base also noted. There is no pneumatosis or pneumoperitoneum identified. Imaged inferior cardiac chambers are mildly enlarged. 1.7 x 1.0 cm indeterminate enlarged right-sided epicardial lymph node is noted. Coronary arterial calcifications are seen. Liver, spleen and right adrenal gland are unremarkable. There is mild thickening of the left adrenal gland suggesting hyperplasia. Severe generalized pancreatic atrophy. Mild gallbladder distention without cholelithiasis. Cortical scarring and parenchymal thinning about the left kidney. Renal sinus cysts are also noted on the left. Right greater the left bilateral nonobstructing nephrolithiasis with 7 mm calculus of the superior pole right kidney. There is moderate right-sided hydroureteronephrosis secondary to an obstructing 9 x 7 x 6 mm calculus of the proximal right ureter is present approximately 1.2 cm distal to the ureteropelvic junction. Moderate perinephric and periureteral reactive edema. Prostamegaly with urinary bladder distention. There is also mild urinary bladder wall thickening with trabeculation. Small fat filled left inguinal hernia. Moderate calcification of the aorta without aneurysm. Retroaortic left renal vein. No bulky adenopathy. Small sliding-type hiatal hernia. 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 Colonic diverticulosis without diverticulitis. Normal appendix. Prior ventral abdominal wall herniorrhaphy. Small fat filled periumbilical hernia, diastases 1.4 cm. Bones appear intact. Multilevel degenerative changes about the spine. IMPRESSION: 1. Moderate right-sided hydroureteronephrosis secondary to a 9 mm obstructing calculus of the proximal right ureter. Additional right greater than left bilateral nonobstructing nephrolithiasis. 2. Colonic diverticulosis without diverticulitis. 3. Small sliding-type hilar hernia. 4. Prostamegaly with urinary bladder distention. Correlate clinically to exclude urinary bladder outlet obstruction. 5. Additional findings as above. The above report was generated using voice recognition software. It may contain grammatical, syntax or spelling errors. Electronically signed by: Sheldon Romero M.D. 11/21/2017 9:28 PM Dictated Date/Time: 11/21/2017 9:17 PM The status of this report is Signed. Draft = Not yet reviewed or approved by Radiologist. Signed = Reviewed and approved by Radiologist. Consultations: Urology Medication Reconciliation New Medications: Oxycodone Ir (Roxicodone Ir) 5 Mg Tab 5 MG PO Q6H PRN for Pain for 3 Days, #10 TAB Continued Medications: Cholecalciferol (Vitamin D) Unknown Strength Tab 1 TAB PO DAILY Lysine (L-Lysine) Unknown Strength Cap 1 CAP PO DAILY Misc Natural Products (Saw Glenvil) 1 Cap Cap 1 CAP PO DAILY Discharge Exam A 10 point review of systems was negative unless stated in hospital course. Physical Exam: General Appearance: WD/WN, no apparent distress Eyes: normal inspection, EOMI ENT: normal ENT inspection, hearing grossly normal, pharynx normal Neck: supple, no adenopathy, no JVD Respiratory/Chest: lungs clear, no respiratory distress Cardiovascular: regular rate, rhythm, no gallop, no murmur Abdomen / GI: normal bowel sounds, non tender, soft Extremities: no calf tenderness, no pedal edema Neurologic/Psychiatric: alert, normal mood/affect, oriented x 3 Skin: normal color, warm/dry, no rash Lymphatic: no adenopathy Hospital Course Very pleasant 82 year old male presenting with acute right-sided abdominal pain and found to have right-sided obstructing proximal ureteral stone with hydronephrosis. Stone is approximately 9 mm. - Right obstructing proximal ureteral stone with right-sided hydronephrosis: Clinically patient well upon admission and pain free following ED admission. He was evaluated by urology with joint decision to proceed later this week with shockwave lithotripsy. He declined the alternative of stent placement. Pain well controlled. He did not use the PRN Morphine since arrival to floor. He was given small course of oxycodone to take in event that pain recurs between discharge and stent placement. - History of BPH/TURP: Patient notes previous history with TURP. Had prostatomegaly on CT. Overnight exhibited symptoms of obstruction requiring straight cath upon transfer to floor from ED. Tamsulosin started by urology. I will continue him on this until he follows-up with urology. - DVT Prophylaxis: SCD and TEDs. - Code Status: Level I Full Code The patient was discharge in stable condition with plans for lithotripsy on 11/25. Total Time Spent: Greater than 30 minutes This includes examination of the patient, discharge planning, medication reconciliation, and communication with other providers. Discharge Instructions Please refer to the electronic Patient Visit Report (Discharge Instructions) for additional information. Additional Copies To Cooper Jin M.D.
[2017-11-22] MEDS ORDERED: TAMS0.4C38 PO (19:12)
[2017-11-22] MEDS ORDERED: TAMSULOSIN HCL 0.4 MG CAP PO SCH (21:00)
== END 2017-11-22 17:53 | disposition home or self-care (01) | DRG 694 ==
LOC: C.EDB 19:21 → C.MSW 23:14 → ENRESERV 23:28
PROVIDERS: ADMIT Family Medicine; ATTEND Family Medicine
DX: N13.2 Hydronephrosis with renal and ureteral calculous obstruction (principal); N13.8 Other obstructive and reflux uropathy; N40.1 Benign prostatic hyperplasia with lower urinary tract symptoms; R33.8 Other retention of urine; Z87.891 Personal history of nicotine dependence

== ENCOUNTER → 2018-02-02 | Outpatient (CLI) | payer BC ==
[~2018-02-02] MED LIST changes: -ASCO500C OR; +CHOL400T PO; -CPRUNK PO; -L-LYSINE PO; +LYSI500C4 PO; +MISC1CAP60 PO; -MULT-506 PO; +OXYC-90 PO; -POTASSIUM PO; -PRCUNK PO; -PYRUNK PO; -SAW PALMETTA PO; +TAMS0.4C38 PO; -VITAMIN D PO
--- NOTE | 2018-02-02 11:42 | DIAGNOSTIC IMAGING REPORT ---
[facility]UB CLINICAL HISTORY: N20.0 nephrocalcinosis COMPARISON STUDY: 12/02/2017 FINDINGS: Unchanging 2 mm calcification peripheral aspect right kidney. All additional calcific fragments appear to have passed. So as shadows are unremarkable. Multiple pelvic surgical clips and coils. IMPRESSION: 1. 2 mm calcification lower aspect right kidney. 2. Otherwise negative study.. 3. Nonobstructive bowel pattern. The above report was generated using voice recognition software. It may contain grammatical, syntax or spelling errors. Electronically signed by: Navneet Streeter M.D. 02/02/2018 11:41 AM Dictated Date/Time: 02/02/2018 11:40 AM
== END | disposition home or self-care (01) ==
LOC: C.RAD1850 11:24
PROVIDERS: ATTEND Urology
DX: N20.0 Calculus of kidney (principal)